=== PATIENT | male | born 1990 ===

== ENCOUNTER 2016-12-07 15:42 | Emergency (ER) | payer BC ==
[2016-12-07 15:51] VITALS: BP 121/52; PULSE 99; RESP 16; TEMP 98.2; O2SAT 98; BMI 38.7
--- NOTE | 2016-12-07 15:51 | ED PDOC ---
Arrival/HPI - General Time Seen by Provider: 12/07/16 15:47 Historian: Patient - History of Present Illness Narrative History of Present Illness (Text): 12/07/16 15:48 26 y/o male, no significant pmh, nkda, c/o rt. hand 3rd and 4th digit finger injury x 2 hours. Pt. was at the gym, weight accidentally dropped on the middle of the finger, no numbness or tingling, able to flex and extend the injure finger, no abrasion or laceration, no other medical or psychological complaints. Past Medical History - Provider Review Nursing Documentation Reviewed: Yes - Infectious Disease Hx of Infectious Diseases: None - Tetanus Immunization Tetanus Immunization: Unknown - Pulmonary Hx Asthma: Yes - Psychiatric Hx Depression: No Hx Emotional Abuse: No Hx Physical Abuse: No Hx Substance Use: No - Past Surgical History Past Surgical History: No Previous - Suicidal Assessment Feels Threatened In Home Enviroment: No Family/Social History - Physician Review Nursing Documentation Reviewed: Yes Family/Social History: Unknown Family HX Hx Alcohol Use: Yes Hx Substance Use: No Hx Substance Use Treatment: No Allergies/Home Meds Allergies/Adverse Reactions: Allergies No Known Allergies Allergy (Verified 12/07/16 15:51) Review of Systems - Review of Systems Constitutional: absent: Fatigue, Fevers ENT: absent: Hearing Changes Respiratory: absent: SOB, Cough, Sputum Cardiovascular: absent: Chest Pain Gastrointestinal: absent: Diarrhea, Nausea, Vomiting Musculoskeletal: Arthralgias. absent: Back Pain, Neck Pain, Joint Swelling, Myalgias Hemo/Lymphatic: absent: Adenopathy Psychiatric: absent: Anxiety, Depression, Suicidal Ideation Physical Exam Vital Signs Temp Pulse Resp BP Pulse Ox 12/07/16 16:40 16 98 12/07/16 15:51 98.2 F 99 H 121/52 L 98 12/07/16 15:50 98.2 F 99 H 16 121/52 L 98 - Systems Exam Head: Present: Atraumatic, Normocephalic Pupils: Present: PERRL Extroacular Muscles: Present: EOMI Conjunctiva: Present: Normal Mouth: Present: Moist Mucous Membranes Neck: Present: Normal Range of Motion Respiratory/Chest: Present: Clear to Auscultation, Good Air Exchange. No: Respiratory Distress, Accessory Muscle Use Cardiovascular: Present: Regular Rate and Rhythm, Normal S1, S2. No: Murmurs Abdomen: Present: Normal Bowel Sounds. No: Tenderness, Distention, Peritoneal Signs Back: Present: Normal Inspection Upper Extremity: Present: Normal Inspection, Other (Rt. hand: +ttp on the middle phalanx of the 3rd digit, mild less than 2 percent subungal hematoma with no pain, skin intact, no abrasion or laceration, FROM without limitation, sensation intact, motor 5/5, +radial pulse, capillary refill< 2 seconds, neurovasuclar intact.). No: Cyanosis, Edema Lower Extremity: Present: Normal Inspection. No: Edema Neurological: Present: GCS=15, CN II-XII Intact, Speech Normal Skin: Present: Warm, Dry, Normal Color. No: Rashes Psychiatric: Present: Alert, Oriented x 3, Normal Insight, Normal Concentration Medical Decision Making ED Course and Treatment: 12/07/16 15:53 -xray -motrin -pt. refused trephination. -observe and reassess 12/07/16 16:27 -xray show fracture of the distal tuft which is a closed fracture on the 3rd digit, finger splint applied with neurovascular intact. -Discharge home with finger splint, motrin, ice compression, follow up with your own pmd and hand surgeon within 2 days, return to the ER for any new or worsening signs or symptoms. - RAD Interpretation Radiology Orders: 12/07/16 15:54 HAND RIGHT 3 VIEWS [RAD] Stat PROCEDURE: Right Hand Radiographs. HISTORY: rt. hand 3rd and 4th digit injury and pain COMPARISON: None. FINDINGS: BONES: There is a nondisplaced comminuted fracture of the 3rd distal phalanx JOINTS: Normal. No osteoarthritic changes. SOFT TISSUES: Normal. OTHER FINDINGS: None. IMPRESSION: Nondisplaced comminuted fracture of the 3rd distal phalanx Route Sales Delivery Driver: Radiologist - Medication Orders Current Medication Orders: Discontinued Medications Ibuprofen (Motrin Tab) 800 mg PO STAT STA Stop: 12/07/16 15:55 Last Admin: 12/07/16 16:09 Dose: 800 MG MAR Pain/Vitals Document 12/07/16 16:09 [email or web address] (Rec: 12/07/16 16:09 [email or web address] [facility] [place]-FAST- [id number]) Pain Reassessment Is This A Pain ReAssessment? No Sleep Is patient sleeping during reassessment? 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 Disposition/Present on Arrival - Present on Arrival Any Indicators Present on Arrival: No History of DVT/PE: No History of Uncontrolled Diabetes: No Urinary Catheter: No History of Decub. Ulcer: No History Surgical Site Infection Following: None - Disposition Have Diagnosis and Disposition been Completed?: Yes Diagnosis: Finger fracture Disposition: HOME/ ROUTINE Disposition Time: 16:29 Patient Plan: Discharge Condition: GOOD Additional Instructions: Discharge home with finger splint, motrin, ice compression, follow up with your own pmd and hand surgeon within 2 days, return to the ER for any new or worsening signs or symptoms. Prescriptions: Ibuprofen [Motrin Tab] 800 mg PO TID PRN #21 tab PRN Reason: Other Referrals: PCP,NO [Primary Care Provider] - Follow up with primary Gilbert Zendejas MD [Staff Provider] - Follow up with primary Forms: WORK NOTE
--- NOTE | 2016-12-07 16:52 | RAD ---
PROCEDURE: Right Hand Radiographs. HISTORY: rt. hand 3rd and 4th digit injury and pain COMPARISON: None. FINDINGS: BONES: There is a nondisplaced comminuted fracture of the 3rd distal phalanx JOINTS: Normal. No osteoarthritic changes. SOFT TISSUES: Normal. OTHER FINDINGS: None. IMPRESSION: Nondisplaced comminuted fracture of the 3rd distal phalanx
== END 2016-12-07 16:41 | disposition home or self-care (01) ==
LOC: ED 15:42
DX: S62.662A Nondisplaced fracture of distal phalanx of right middle finger, initial encounter for closed fracture (principal); W22.8XXA Striking against or struck by other objects, initial encounter; Y93.89 Activity, other specified; Y92.39 Other specified sports and athletic area as the place of occurrence of the external cause

== ENCOUNTER 2017-10-13 13:24 | Emergency (ER) | payer BC ==
[2017-10-13 13:24] VITALS: BMI 38.7
[2017-10-13 14:01] VITALS: RESP 18; O2SAT 98
[2017-10-13 14:07] VITALS: TEMP 99
--- NOTE | 2017-10-13 15:02 | ED PDOC ---
Arrival/HPI - General Chief Complaint: Back Pain Time Seen by Provider: 10/13/17 14:44 Historian: Patient - History of Present Illness Narrative History of Present Illness (Text): 10/13/17 14:53 27yr old male with a history of scoliosis presents today with a one-year history of back pain. Patient states he does heavy lifting at work and over the past few days has had continued pain in the back. Patient states he has a scheduled appointment with a spinal specialist in 6 days. Patient is complaining of a achy burning pain to the back of the neck and shoulders worse with range of motion patient denies numbness weakness or tingling in the 70s. Denies chest pain or shortness of breath. Denies cough. Patient states he's been taking Motrin at home and at times will take a Flexeril if the pain becomes severe. Patient states he was told that he might need an MRI but he has to wait until he sees the specialist and he feels as if he cannot wait any longer. Patient states pain worsens with heavy lifting. Past Medical History - Provider Review Nursing Documentation Reviewed: Yes - Travel History Have you recently traveled outside [place] w/in the past 3 mons?: No - Infectious Disease Hx of Infectious Diseases: None - Tetanus Immunization Tetanus Immunization: Unknown - Cardiac Hx Cardiac Disorders: No - Pulmonary Hx Asthma: Yes - Neurological Hx Neurological Disorder: No - HEENT Hx HEENT Disorder: No - Renal Hx Renal Disorder: No - Endocrine/Metabolic Hx Endocrine Disorders: No - Hematological/Oncological Hx Blood Disorders: No - Integumentary Hx Dermatological Disorder: No - Musculoskeletal/Rheumatological Hx Musculoskeletal Disorders: No - Gastrointestinal Hx Gastrointestinal Disorders: No - Genitourinary/Gynecological Hx Genitourinary Disorders: No - Psychiatric Hx Depression: No Hx Emotional Abuse: No Hx Physical Abuse: No Hx Substance Use: Yes - Past Surgical History Past Surgical History: No Previous - Anesthesia Hx Anesthesia: No - Suicidal Assessment Feels Threatened In Home Enviroment: No Family/Social History - Physician Review Nursing Documentation Reviewed: Yes Family/Social History: Unknown Family HX Smoking Status: Never Smoked Hx Alcohol Use: Yes Hx Substance Use: Yes Substance used: marijuana Hx Substance Use Treatment: No Allergies/Home Meds Allergies/Adverse Reactions: Allergies No Known Allergies Allergy (Verified 10/13/17 14:01) Home Medications: Home Meds Medication Instructions Recorded Confirmed Cyclobenzaprine [Cyclobenzaprine 5 mg PO PRN 10/13/17 10/13/17 HCl] Review of Systems - Review of Systems Constitutional: absent: Fatigue, Fevers Respiratory: absent: SOB, Cough Cardiovascular: absent: Chest Pain, Palpitations Gastrointestinal: absent: Abdominal Pain, Nausea, Vomiting Genitourinary Male: absent: Dysuria, Frequency Musculoskeletal: Arthralgias, Neck Pain. absent: Back Pain Skin: absent: Rash, Pruritis Neurological: absent: Headache, Dizziness Psychiatric: absent: Anxiety, Depression Physical Exam Vital Signs Reviewed: Yes Vital Signs Temp Pulse Resp BP Pulse Ox 10/13/17 15:20 86 18 128/76 98 10/13/17 14:06 99.0 F 90 18 131/75 98 10/13/17 13:57 99 F 90 18 131/75 98 Temperature: Afebrile Blood Pressure: Normal Pulse: Regular Respiratory Rate: Normal Appearance: Positive for: Well-Appearing, Non-Toxic, Comfortable Pain Distress: None Mental Status: Positive for: Alert and Oriented X 3 - Systems Exam Head: Present: Atraumatic Mouth: Present: Moist Mucous Membranes Neck: Present: Normal Range of Motion, Paraspinal Tenderness (+ bilateral paraspinal and trapezius tenderness). No: MIDLINE TENDERNESS Respiratory/Chest: Present: Clear to Auscultation, Good Air Exchange. No: Respiratory Distress, Accessory Muscle Use Cardiovascular: Present: Regular Rate and Rhythm, Normal S1, S2. No: Murmurs Back: Present: Normal Inspection. No: Midline Tenderness, Paraspinal Tenderness Upper Extremity: Present: Normal Inspection, Normal ROM, NORMAL PULSES, Capillary Refill < 2s. No: Tenderness Lower Extremity: Present: Normal ROM Neurological: Present: GCS=15, Motor Func Grossly Intact, Normal Sensory Function Skin: Present: Warm, Dry, Normal Color. No: Rashes Psychiatric: Present: Alert, Oriented x 3 Medical Decision Making ED Course and Treatment: 10/13/17 15:03 Patient nontoxic well-appearing in no distress with stable vital signs. Toradol IM Patient reassessment: Feeling better with medications ambulating with a steady gait. Muscle strength 5 out of 5 bilaterally. I advised to followup with the orthopedist within the next 2 days. Return if symptoms worsen persist or new symptoms develop Patient verbalizes understanding of discharge instructions and need for immediate followup. all aspects of this case were discussed the attending of record. Impression: neck pain Motrin every 6 hours as needed for pain Valium one tablet every 8 hours as needed for muscle spasms: May cause drowsiness Followup with the orthopedist within the next 2 days Followup with primary care physician within the next 2 days Return if symptoms worsen persist or if new symptoms develop - Medication Orders Current Medication Orders: Discontinued Medications Ketorolac Tromethamine (Toradol) 60 mg IM STAT STA Stop: 10/13/17 14:52 Last Admin: 10/13/17 15:41 Dose: 60 mg MAR Pain Assessment Document 10/13/17 15:41 HI (Rec: 10/13/17 15:42 [id number]) Pain Reassessment Is this a pain reassessment? No IM Administration Charges Document 10/13/17 15:41 HI (Rec: 10/13/17 15:42 [id number]) Injection Site MAR Injection Site Left Gluteus Adolfo Charges for Administration # of IM Administrations 1 Disposition/Present on Arrival - Present on Arrival Any Indicators Present on Arrival: No History of DVT/PE: No History of Uncontrolled Diabetes: No Urinary Catheter: No History of Decub. Ulcer: No History Surgical Site Infection Following: None - Disposition Have Diagnosis and Disposition been Completed?: Yes Diagnosis: Neck pain Disposition: HOME/ ROUTINE Disposition Time: 15:58 Patient Plan: Discharge Condition: GOOD Discharge Instructions (ExitCare): Back Pain (ED) Additional Instructions: Motrin every 6 hours as needed for pain Valium one tablet every 8 hours as needed for muscle spasms: May cause drowsiness Followup with the orthopedist within the next 2 days Followup with primary care physician within the next 2 days Return if symptoms worsen persist or if new symptoms develop Prescriptions: diaZEpam [Valium] 2 mg PO Q8H PRN #6 tab PRN Reason: muscle spasms Ibuprofen [Motrin] 600 mg PO Q6H PRN #20 tab PRN Reason: pain/fever reduction Referrals: April Titus MD [Primary Care Provider] - Follow up with primary Visco,Huber Singleton MD [Staff Provider] - Follow up with primary Forms: [employer] ([place]ian), WORK NOTE
[2017-10-13 15:20] VITALS: BP 128/76; PULSE 86
== END 2017-10-13 16:06 | disposition home or self-care (01) ==
LOC: ED 13:24
DX: M54.2 Cervicalgia (principal)
CPT/HCPCS: 96372; 99283; J1885